=== PATIENT | female | born 1990 | race African-American/Black ===

== ENCOUNTER 2020-05-29 08:21 | Outpatient (REF) | payer OTHER, SELFPAY ==
[2020-05-29 09:33] LABS: Alanine Aminotransferase 9 U/L (0-31); Alkaline Phosphatase 56 U/L (39-117); Anion Gap 16 (12-20); Aspartate Amino Transferase 14 U/L (5-31); Bilirubin Total 0.3 mg/dL (0.0-1.0); Blood Urea Nitrogen 19 mg/dL (9-16); Calcium 8.8 mg/dL (8.4-10.2); Carbon Dioxide 20 mmol/L (22-29); Chloride 109 mmol/L (96-108); Cholesterol 188 mg/dL; Estimated Glomerular Filt Rate > 60; Glucose Fasting 91 mg/dL (60-99); HDL Cholesterol 47 mg/dL; Potassium 4.4 mmol/l (3.3-5.1); Sodium 141 mmol/L (135-145)
[2020-05-29 09:36] LABS: LDL Cholesterol Calculated 127 mg/dl; Triglycerides 71 mg/dL
[2020-06-02 12:07] LABS: Vitamin D 25-OH, D2 <4 ng/mL; Vitamin D 25-OH, D3 21 ng/mL; Vitamin D 25-OH, Total 21 ng/mL (30-100)
== END 2020-05-29 08:22 | disposition home or self-care (01) ==
LOC: HO.LAB 08:21
PROVIDERS: PCP Internal Medicine; Visit Provider Internal Medicine
DX: E55.9 Vitamin D deficiency, unspecified (principal); E78.5 Hyperlipidemia, unspecified; E66.9 Obesity, unspecified
CPT/HCPCS: 36415; 80053; 80061; 82306

== ENCOUNTER 2021-01-05 16:45 | Outpatient (REF) | payer OTHER, SELFPAY ==
[2021-01-05 17:50] LABS: MANUAL DIFF FLAG NO
[2021-01-05 17:58] LABS: Basophils Absolute Auto 0.1 X10*3/uL (0.0-0.2); Basophils Percent Auto 0.5 % (0-2); Eosinophils Absolute Auto 0.2 X10*3/uL (0.0-0.4); Eosinophils Percent Auto 1.7 % (0-4); Hemoglobin 12.8 g/dl (12.0-16.0); Imm Gran Abs Auto 0.03 X10*3/uL (0.00-0.03); Imm Gran Pct Auto 0.3 % (0.0-0.4); Lymphocytes Absolute Auto 2.6 X10*3/uL (1.2-4.9); Lymphocytes Percent Auto 26.6 % (20-40); Mean Corpuscular HGB Conc 32.8 g/dl (31.0-35.0); Mean Corpuscular Hemoglobin 29.2 pg (27.0-33.0); Mean Corpuscular Volume 88.8 fL (80-98); Mean Platelet Volume 10.4 fL (9.4-12.3); Monocytes Absolute Auto 0.9 X10*3/uL (0.1-1.2); Neutrophils Percent Auto 61.9 % (45-73); Platelet Count 305 X10*3/uL (160-400); Red Blood Count 4.39 X10*6/uL (4.20-5.50); Red Cell Distribution Width 12.3 % (11.0-16.0); White Blood Count 9.7 X10*3/uL (4.8-10.8)
[2021-01-05 18:16] LABS: Alanine Aminotransferase 15 U/L (0-31); Albumin Level 4.4 g/dL (3.5-5.0); Alkaline Phosphatase 61 U/L (39-117); Anion Gap 12 (12-20); Aspartate Amino Transferase 18 U/L (5-31); Bilirubin Total 0.4 mg/dL (0.0-1.0); Blood Urea Nitrogen 18 mg/dL (9-16); Calcium 9.8 mg/dL (8.4-10.2); Carbon Dioxide 27 mmol/L (22-29); Chloride 104 mmol/L (96-108); Estimated Glomerular Filt Rate > 60; Glucose Random 85 mg/dL (60-115); Potassium 4.4 mmol/L (3.3-5.1); Sodium 139 mmol/L (135-145); Total Protein 7.4 g/dL (6.5-8.0)
== END 2021-01-05 16:46 | disposition home or self-care (01) ==
LOC: HO.LAB 16:45
PROVIDERS: PCP Internal Medicine; Visit Provider Nurse Practitioner Family
DX: R10.9 Unspecified abdominal pain (principal)
CPT/HCPCS: 36415; 80053; 85025

== ENCOUNTER 2021-10-31 10:46 | Outpatient (REF) | payer OTHER, SELFPAY ==
[2021-10-31 11:16] LABS: MANUAL DIFF FLAG NO
[2021-10-31 11:41] LABS: Basophils Percent Auto 0.4 % (0-2); Eosinophils Absolute Auto 0.3 X10*3/uL (0.0-0.4); Eosinophils Percent Auto 3.5 % (0-4); Hematocrit 40.2 % (37.0-47.0); Hemoglobin 13.1 g/dl (12.0-16.0); Imm Gran Abs Auto 0.02 X10*3/uL (0.00-0.03); Imm Gran Pct Auto 0.3 % (0.0-0.4); Mean Corpuscular HGB Conc 32.6 g/dl (31.0-35.0); Mean Corpuscular Volume 88.9 fL (80.0-98.0); Monocytes Absolute Auto 0.6 X10*3/uL (0.1-1.2); Monocytes Percent Auto 7.6 % (2-11); Neutrophils Absolute Auto 4.5 x10*3/uL (2.0-8.3); Neutrophils Percent Auto 61.2 % (45-73); Platelet Count 302 X10*3/uL (160-400); Red Blood Count 4.52 X10*6/uL (4.20-5.50); Red Cell Distribution Width 12.8 % (11.0-16.0); White Blood Count 7.4 X10*3/uL (4.8-10.8)
[2021-10-31 12:22] LABS: Alanine Aminotransferase 19 U/L (0-31); Albumin Level 4.2 g/dL (3.5-5.0); Alkaline Phosphatase 86 U/L (39-117); Anion Gap 11 (12-20); Aspartate Amino Transferase 22 U/L (5-31); Bilirubin Total 0.4 mg/dL (0.0-1.0); Blood Urea Nitrogen 15 mg/dL (9-16); Calcium 8.9 mg/dL (8.4-10.2); Carbon Dioxide 26 mmol/L (22-29); Chloride 105 mmol/L (96-108); Estimated Glomerular Filt Rate > 60; Glucose Fasting 82 mg/dL (60-99); Potassium 4.3 mmol/L (3.3-5.1); Sodium 138 mmol/L (135-145); Total Protein 7.5 g/dL (6.5-8.0)
[2021-10-31 12:36] LABS: Folate 14.2 ng/mL (> or = 4.0); Vitamin B12 525 pg/mL (200-900)
[2021-10-31 12:46] LABS: Vitamin D 25-OH Total 22.4 ng/mL (>30)
== END 2021-10-31 10:47 | disposition home or self-care (01) ==
LOC: HO.LAB 10:46
PROVIDERS: Nurse Practitioner Family; PCP Internal Medicine; Visit Provider Nurse Practitioner Family
DX: Z00.00 Encounter for general adult medical examination without abnormal findings (principal); R00.2 Palpitations; I10 Essential (primary) hypertension; E78.00 Pure hypercholesterolemia, unspecified; E66.9 Obesity, unspecified
CPT/HCPCS: 36415; 80048; 80053; 82306; 82607; 82746; 84443; 85025

== ENCOUNTER 2023-06-30 09:04 | Outpatient (AMB) | payer OTHER, SELFPAY ==
--- NOTE | 2023-06-30 09:10 | A.OFFPC_ITS ---
Vital Signs 06/30/23 09:11 Height 5 ft 3 in Weight 203 lb BMI 36.0 BP 108/70 Blood Pressure Location Lt brachial Position Sitting Intake Visit Reasons: Annual Exam Intake Note: Patient here for a physical exam Diving Board Assembler Required: No Accompanied by: Self / Same As Patient Allergies bacitracin [BACITRACIN] Allergy (Unknown, Verified 06/30/23 09:18) HIVES Medication List - Last Reconciled 06/30/23 by Maureen Matthews MD No Known Home Meds Tobacco use date assessed: 06/30/23 Dental Screening Dental Screen Date: 06/30/23 Did you have a dental visit in the last 12 months?: Yes Did you have a dental problem in the last 6 months where you did not have access to dental care?: No Was dental information given to patient?: Patient has dentist HPI HPI Comments History of Present Illness Details This is a 33-year-old female that comes for her physical exam. Last Pap smear was 2 weeks ago and was normal as per patient and this was at [facility]. No chest pain or shortness of breath. Has lost 70 lb since bariatric surgery. No fever or cough. [facility] Medical History (Updated 06/30/23 @ 09:28 by Maureen Matthews MD) Morbid obesity with BMI of 40.0-44.9, adult Hypovitaminosis D Pure hypercholesterolemia Obesity Surgical History History of bariatric surgery History of cholecystectomy History of tonsillectomy and adenoidectomy Family History Father Asthma Mother Diabetes Maternal Grandmother Diabetes Maternal Grandfather No problems noted. Paternal Grandmother No problems noted. Paternal Grandfather Stroke Social History Housing: House Alcohol intake: former Patient Tobacco Use Status: Never used Tobacco e-Cigarette/Vaping Use: Never Used Second Hand Smoke Exposure: No service: No Current occupational status: employed Current occupational exposures/hazards: No Cognitive needs: No Hearing needs: No Vision needs: Yes (glasses) Questionnaire PHQ-9 Over the last 2 weeks, how often have you been bothered by any of the following problems? 1. Little interest or pleasure in doing things: not at all 2. Feeling down, depressed, or hopeless: not at all 3. Trouble falling or staying asleep, or sleeping too much: not at all 4. Feeling tired or having little energy: not at all 5. Poor appetite or overeating: not at all 6. Feeling bad about yourself - or that you are a failure or have let yourself or your family down: not at all 7. Trouble concentrating on things, such as reading the newspaper or watching television: not at all 8. Moving or speaking so slowly that other people could have noticed. Or the opposite - being so fidgety or restless that you have been moving around a lot more than usual: not at all 9. Thoughts that you would be better off or of hurting yourself in some way: not at all Total score: 0 Depression Screening Interpretation: Negative Depression Screening Done: Yes 26724 - PHQ-9 Billing: Yes Source: Developed by Drs. Jonatan Fuchs, Serenity Mueller, Eyad Stover and colleagues, with an educational nilton from [employer]. Thrive Questionnaire Date Thrive assessed: 06/30/23 I am a: Patient What is your living situation today?: I have a steady place to live Within the past 12 months, did the food you bought not last and you didn't have the money to get more?: Never true Within the past 12 months, did you worry whether your food would run out before you got money to buy more?: Never true Do you have trouble paying for medicines?: No Do you have trouble getting transportation to medical appointments?: No Do you have trouble paying your heating and electricity bill?: No Do you have trouble taking care of your child, family member or friend?: No Do you have trouble with day-to-day activities such as bathing, preparing meals, shopping, managing finances, etc.?: No Are you currently unemployed and looking for a job?: No Are you interested in more education?: No Please select the resources that you would like help with: None Currently or been in a relationship where the following occur: no concerns reported THRIVE Score: 0 AUDIT C Alcohol Use Questionnaire (AUDIT-C) 1. How often do you have a drink containing alcohol?: Never Total Score: 0 BELA-7 AMB Questionnaire BELA-7 Date BELA - 7 assessed: 06/30/23 Feeling nervous, anxious, or on edge: 0 = Not at all Not being able to stop or control worryin = Not at all Worrying too much about different things: 0 = Not at all Trouble relaxin = Not at all Being so restless that it is hard to sit still: 0 = Not at all Becoming easily annoyed or irritable: 0 = Not at all Feeling afraid as if something awful might happen: 0 = Not at all Total BELA-7 score (0-4 normal; 5-9 mild; 10-14 moderate; 15-21 severe): 0 Source: Developed by Drs. Jonatan Fuchs, Serenity Mueller, Eyad Stover and colleagues, with an educational nilton from [employer]. BELA-7 Assessment Billing BELA-7 Assessment Tool: BELA-7 Assessment 38197 Review of Systems Const All systems reviewed & are unremarkable except as noted in HPI and below Eyes Reports no additional complaints, Denies change in vision and Denies other visual disturbances Card Denies chest pain at rest, Denies chest pain with activity, Denies edema, Denies irregular heart rhythm, Denies claudication, Denies dyspnea, Denies dyspnea on exertion, Denies orthopnea, Denies paroxysmal nocturnal dyspnea and Denies slow heart rate Resp Denies cough, Denies dyspnea and Denies dyspnea on exertion GI Denies abdominal pain, Denies change in bowel habits, Denies excessive flatus, Denies nausea and Denies vomiting Denies urinary incontinence, Denies urinary hesitancy and Denies urinary urgency Musc Denies abnormal gait, Denies atrophy, Denies deformity and Denies limited range of motion Skin/Breast Denies bleeding lesions, Denies changing lesions and Denies rash Neuro Denies abnormal gait, Denies behavioral changes, Denies confusion and Denies lack of coordination Psych Denies behavioral changes and Denies confusion Physical exam (Primary Care) Vital Signs: Last Vital Signs BP 108/70 06/30/23 09:11 BMI result Body Mass Index 36.0 Tobacco/Smoking Status: Tobacco use Status Tobacco use date assessed 06/30/23 06/30/23 09:17 Patient Tobacco Use Status Never used Tobacco 06/30/23 09:17 e-Cigarette/Vaping Use Never Used 06/30/23 09:17 PHQ-9: PHQ-9 Score PHQ-9: Total score 0 06/30/23 09:17 Depression Screening Interpretation: Negative Thrive Assessment: Date of Thrive Assessment Date Thrive assessed 06/30/23 06/30/23 09:17 Currently or been in a relationship where the following occur: no concerns reported Const General: No confusion Orientation/consciousness: patient oriented x3 and No confusion HENMT Head: Yes normal to inspection, Yes normocephalic and Yes atraumatic Ears: external ears normal Eyes General: appearance normal, both eyes and all related structures Eyelids: Yes eyelids normal Conjunctivae: conjunctivae normal Neck Neck: Yes normal visual inspection and Yes supple Resp Effort & Inspection: normal respiratory effort Auscultation: clear to auscultation bilaterally Cardio Jugular venous distension: no JVD Rate: regular rate Rhythm: regular rhythm Heart sounds: S1 normal heart sound present and S2 normal heart sound present GI Inspection: Yes normal to inspection Palpation (GI): Soft to palpation and nontender Auscultation: normal bowel sounds Skin General skin exam: no rashes or lesions noted Neuro General: patient oriented x3, no focal motor deficits and No confusion Extrem General: Yes full ROM Psych Appearance: grossly normal Assessment and Plan Assessment & Plan (1) Physical exam: Code(s): Z00.00 - Encounter for general adult medical examination without abnormal findings Plan: Repeat in a year. Orders: Orders Vitamin D 25-OH Total Today E55.9 - Vitamin D deficiency, unspecified Comprehensive Ulysses. Panel Fast Today Z00.00 - Encounter for general adult medical examination without abnormal findings Vitamin B12 and Folate Today E53.8 - Deficiency of other specified B group vitamins Lipid Panel Today Z00.00 - Encounter for general adult medical examination without abnormal findings Complete Blood Count Auto Diff Today E66.9 - Obesity, unspecified Coding Level of Care Code Est Pt Prev Care 18-39y(21895) Diagnoses Physical exam Z00.00 Additional Codes BELA-7 Assessment Billing - BELA-7 Assessment Tool: BELA-7 Assessment 75822 ([id number]) Time Spent (min) 31
[2023-06-30 09:11] VITALS: BP 108/70; BMI 36.0
== END 2023-06-30 09:26 | disposition home or self-care (01) ==
PROVIDERS: Visit Provider Internal Medicine
DX: Z00.00 Encounter for general adult medical examination without abnormal findings (principal)
CPT/HCPCS: 99395

== ENCOUNTER → 2024-07-05 08:25 | Outpatient (BNVA) | payer OTHER, MEDICAID, SELFPAY | PROVIDERS: PCP Internal Medicine; Visit Provider Internal Medicine ==

== ENCOUNTER 2024-07-19 14:46 | Outpatient (AMB) | payer OTHER, SELFPAY ==
--- NOTE | 2024-07-19 14:53 | MHC.PC.OV ---
Vital Signs 07/19/24 14:54 Height 5 ft 3 in Weight 216 lb 6 oz BMI 38.3 BP 130/70 Blood Pressure Location Lt brachial Position Sitting Pulse 53 Pulse Source Pulse Oximeter Temp 97.1 F Temp Source Temporal Artery Scan Pulse Oximetry (%) 100 Oxygen Delivery Method Room Air Intake Visit Reasons: PE - needed to work Intake Note: Patient is here today for a physical. Frame Operator Required: No Anatomy And Physiology Instructor: Not Required per policy Accompanied by: Self / Same As Patient Allergies bacitracin [BACITRACIN] Allergy (Unknown, Verified 07/19/24 15:12) HIVES Medication List - Last Reconciled 07/19/24 by Mariana Boudreaux PA-C No Known Home Meds Tobacco use date assessed: 07/19/24 Dental Screening Dental Screen Date: 07/19/24 Did you have a dental visit in the last 12 months?: Yes Did you have a dental problem in the last 6 months where you did not have access to dental care?: No Was dental information given to patient?: Patient has dentist HPI PE - needed to work HPI Details 34-year-old female with past medical history of hypercholesterolemia and obesity last seen 06/2023 coming in for annual exam. Presenting with a routine physical examination. She has not had any changes in her health profile, including allergies, smoking, or daily medication use, within the past year. She reports managing eczema symptoms with products suitable for her child?s eczema, particularly using Aquaphor, and no progression of symptoms is indicated. Pap smear: 2022 with [facility] for gynecology [facility] Medical History Morbid obesity with BMI of 40.0-44.9, adult Hypovitaminosis D Pure hypercholesterolemia Obesity Surgical History History of bariatric surgery History of cholecystectomy History of tonsillectomy and adenoidectomy Family History Father Asthma Mother Diabetes Maternal Grandmother Diabetes Maternal Grandfather No problems noted. Paternal Grandmother No problems noted. Paternal Grandfather Stroke Social History Housing: House Alcohol intake: current Alcohol intake frequency: holidays/special occasions only Patient Tobacco Use Status: Never used Tobacco e-Cigarette/Vaping Use: Never Used Second Hand Smoke Exposure: No service: No Current occupational status: employed Current occupational exposures/hazards: No Cognitive needs: No Hearing needs: No Vision needs: Yes (glasses) Female Reproductive History Menstrual control method: none Total pregnancies: 2 Full term: 2 History of abnormal pap smear: No Questionnaire PHQ-9 Over the last 2 weeks, how often have you been bothered by any of the following problems? 1. Little interest or pleasure in doing things: not at all 2. Feeling down, depressed, or hopeless: not at all 3. Trouble falling or staying asleep, or sleeping too much: not at all 4. Feeling tired or having little energy: not at all 5. Poor appetite or overeating: not at all 6. Feeling bad about yourself - or that you are a failure or have let yourself or your family down: not at all 7. Trouble concentrating on things, such as reading the newspaper or watching television: not at all 8. Moving or speaking so slowly that other people could have noticed. Or the opposite - being so fidgety or restless that you have been moving around a lot more than usual: not at all 9. Thoughts that you would be better off or of hurting yourself in some way: not at all Total score: 0 Depression Screening Interpretation: Negative Depression Screening Done: Yes Source: Developed by Drs. Jonatan Fuchs, Serenity Mueller, Eyad Stover and colleagues, with an educational nilton from [employer]. Thrive Questionnaire Date Thrive assessed: 07/05/24 I am a: Patient What is your living situation today?: I have a steady place to live Within the past 12 months, did the food you bought not last and you didn't have the money to get more?: Never true Within the past 12 months, did you worry whether your food would run out before you got money to buy more?: Never true Do you have trouble paying for medicines?: No Do you have trouble getting transportation to medical appointments?: No Do you have trouble paying your heating and electricity bill?: No Do you have trouble taking care of your child, family member or friend?: No Do you have trouble with day-to-day activities such as bathing, preparing meals, shopping, managing finances, etc.?: No Are you currently unemployed and looking for a job?: No Are you interested in more education?: No Please select the resources that you would like help with: None Currently or been in a relationship where the following occur: No concerns reported THRIVE Score: 0 AUDIT C Alcohol Use Questionnaire (AUDIT-C) 1. How often do you have a drink containing alcohol?: Never Total Score: 0 BELA-7 AMB Questionnaire BELA-7 Date BELA - 7 assessed: 07/19/24 Feeling nervous, anxious, or on edge: 0 = Not at all Not being able to stop or control worryin = Not at all Worrying too much about different things: 0 = Not at all Trouble relaxin = Not at all Being so restless that it is hard to sit still: 0 = Not at all Becoming easily annoyed or irritable: 0 = Not at all Feeling afraid as if something awful might happen: 0 = Not at all Total BELA-7 score (0-4 normal; 5-9 mild; 10-14 moderate; 15-21 severe): 0 Source: Developed by Drs. Jonatan Fuchs, Serenity Mueller, Eyad Stover and colleagues, with an educational nilton from [employer]. BELA-7 Assessment Billing BELA-7 Assessment Tool: BELA-7 Assessment 91049 Review of Systems Const Denies body aches, Denies chills, Denies fever(s), Denies headache(s) and Denies poor appetite Eyes Reports no additional complaints ENT Denies dysphagia, Denies dizziness, Denies headache(s) and Denies odynophagia Card Denies chest pain, Denies syncope, Denies edema, Denies irregular heart rhythm, Denies lightheadedness and Denies dyspnea Resp Denies cough and Denies dyspnea GI Denies abdominal pain, Denies constipation, Denies dysphagia, Denies diarrhea, Denies nausea, Denies odynophagia and Denies vomiting Reports no additional complaints Musc Reports no additional complaints and Denies abnormal gait Skin/Breast Reports system reviewed and no additional complaints, except as documented Neuro Denies abnormal gait, Denies dizziness, Denies syncope and Denies headache(s) Psych Reports no additional complaints Physical exam (Primary Care) Vital Signs: Last Vital Signs Temp 97.1 F 07/19/24 14:54 Pulse 53 07/19/24 14:54 BP 130/70 07/19/24 14:54 Pulse Ox 100 07/19/24 14:54 Oxygen Delivery Method Room Air 07/19/24 14:54 BMI result Body Mass Index 38.3 Tobacco/Smoking Status: Tobacco use Status Tobacco use date assessed 07/19/24 07/19/24 14:59 Patient Tobacco Use Status Never used Tobacco 07/19/24 14:58 e-Cigarette/Vaping Use Never Used 07/19/24 14:58 PHQ-9: PHQ-9 Score PHQ-9: Total score 0 07/19/24 15:09 Depression Screening Interpretation: Negative Thrive Assessment: Date of Thrive Assessment Date Thrive assessed 07/05/24 07/19/24 14:54 Currently or been in a relationship where the following occur: No concerns reported Const General: cooperative, healthy appearing, comfortable and no acute distress Orientation/consciousness: patient oriented x3 HENMT Head: Yes normocephalic Ears: hearing grossly normal bilaterally, external ears normal, TM's normal bilaterally and EAC's normal General nose exam: Normal external nose present Face and sinus: Yes normal facial exam and Yes sinuses nontender Mouth: Normal oral and palatal mucosa present and tongue normal Throat: Yes posterior oropharynx normal Eyes General: appearance normal, both eyes and all related structures Conjunctivae: conjunctivae normal Pupils: Equal, round and reactive pupils present EOM: EOMs intact bilaterally and No Nystagmus present Neck Neck: Yes normal visual inspection, Yes full ROM and Yes no lymphadenopathy Chest Chest palpation & inspection: normal inspection of the chest Resp Effort & Inspection: normal respiratory effort Auscultation: clear to auscultation bilaterally, no crackles, no rales, no rhonchi, no wheezes and breath sounds present Cardio Rate: regular rate Rhythm: regular rhythm Peripheral pulses: radial pulses present and dorsalis pedis present GI Inspection: Yes normal to inspection and No Abdominal wall edema Palpation (GI): Soft to palpation, not firm and nontender Auscultation: normal bowel sounds Rectal Exam - Female: deferred General: Yes no CVA tenderness Back/Spine/Pelvis Back: no CVA tenderness Skin General skin exam: no rashes or lesions noted Neuro General: patient oriented x3 Cranial nerves: Yes Equal, round and reactive pupils present, Yes Midline tongue present, Yes Ability to bilaterally elevate shoulders present and No Nystagmus present Gait exam (Neuro): Normal gait present Extrem General: Yes normal to inspection, Yes full ROM, No no pedal edema and No edema Psych Speech and movement: Normal speech and movement present Affect: normal affect Insight: Good insight present (Psych) Judgement: Good judgement present (Psych) Coding Level of Care Code Est Pt Prev Care 18-39y(64162) Diagnoses Low vitamin D level R79.89 Obesity (BMI 35.0-39.9 without comorbidity) E66.9 Pure hypercholesterolemia E78.00 Physical exam Z00.00 Eczema L30.9 Additional Codes BELA-7 Assessment Billing - BELA-7 Assessment Tool: BELA-7 Assessment [id number] ([id number]) Assessment & Plan Assessment & Plan (1) Low vitamin D level: Code(s): R79.89 - Other specified abnormal findings of blood chemistry Category: Medical Plan: Ordered for repeat blood work not currently on supplementation. (2) Obesity (BMI 35.0-39.9 without comorbidity): Code(s): E66.9 - Obesity, unspecified Category: Medical Plan: Healthy diet and regular exercise is encouraged. (3) Pure hypercholesterolemia: Code(s): E78.00 - Pure hypercholesterolemia, unspecified Category: Medical Plan: Avoid foods that are high in cholesterol such as red meat, fried foods, eggs and baked goods. Triglyceride goal of less than 150 and LDL goal of less than 130. (4) Physical exam: Code(s): Z00.00 - Encounter for general adult medical examination without abnormal findings Category: Medical Plan: Patient is up-to-date on all recommended routine vaccinations for her age. I did order for updated blood work to be completed by the patient. The patient?s routine physical examination indicated no acute issues requiring immediate intervention. Instructions were provided to complete overdue blood work, including CBC and metabolic panel, which are significant for ongoing health maintenance. Patient is advised to maintain routine health checks and is encouraged to schedule regular Pap smears and dental visits as previously established. Follow-up is anticipated in one year, barring new symptoms or occurrences. (5) Eczema: Code(s): L30.9 - Dermatitis, unspecified Category: Medical Plan: The eczema is being managed with [id number] creams and ointments, which seems satisfactory. Plan This note was constructed using voice recognition software. While every effort has been made to ensure accuracy and smoke room operator, still areas may have been included sometimes these areas may affect the content or meeting of the given symptoms. Total time spent caring for the patient today was 30 minutes. This includes time spent before the visit reviewing the chart, time spent during the visit, and time spent after the visit and documentation. Patient was informed and verbally consented to the use of an ambient scribe for clinic note documentation during this visit. Orders: Orders Comprehensive Met. Panel Today Z00.00 - Encounter for general adult medical examination without abnormal findings TSH reflex Free T4 Today Z00.00 - Encounter for general adult medical examination without abnormal findings Vitamin B12 and Folate Today Z00.00 - Encounter for general adult medical examination without abnormal findings Vitamin D 25-OH Total Today Z00.00 - Encounter for general adult medical examination without abnormal findings Complete Blood Count Auto Diff Today Z00.00 - Encounter for general adult medical examination without abnormal findings Lipid Panel Today E78.00 - Pure hypercholesterolemia, unspecified Free T4 (Free Thyroxine) Today Z00.00 - Encounter for general adult medical examination without abnormal findings
[2024-07-19 14:54] VITALS: BP 130/70; PULSE 53; TEMP 36.2; O2SAT 100; BMI 38.3
== END 2024-07-19 15:31 | disposition home or self-care (01) ==
LOC: HO.HMCH 14:47
PROVIDERS: PCP Internal Medicine
DX: Z00.00 Encounter for general adult medical examination without abnormal findings (principal); R79.89 Other specified abnormal findings of blood chemistry; E66.9 Obesity, unspecified; Z68.38 Body mass index [BMI] 38.0-38.9, adult; E78.00 Pure hypercholesterolemia, unspecified; L30.9 Dermatitis, unspecified

== ENCOUNTER → 2024-07-19 14:46 | Outpatient (BNVA) | payer OTHER, SELFPAY | PROVIDERS: PCP Internal Medicine | DX: Z00.00 Encounter for general adult medical examination without abnormal findings (principal); R79.89 Other specified abnormal findings of blood chemistry; E66.9 Obesity, unspecified; E78.00 Pure hypercholesterolemia, unspecified; L30.9 Dermatitis, unspecified | CPT/HCPCS: 96127; 99395 ==

== ENCOUNTER 2024-11-15 13:14 | Outpatient (AMB) | payer OTHER, SELFPAY ==
--- NOTE | 2024-11-15 13:22 | A.OFFPC_ITS ---
Vital Signs 11/15/24 13:23 Height 5 ft 3 in Weight 218 lb BMI 38.6 BP 118/60 Blood Pressure Location Lt brachial Position Sitting Oxygen Delivery Method Room Air Intake Visit Reasons: Eczema Infected Shuttle Car Operator Required: No Accompanied by: Self / Same As Patient Allergies bacitracin (BACITRACIN) Allergy (Unknown, Verified 11/15/24 13:42) HIVES Medication List - Last Reconciled 11/15/24 by Mariana Boudreaux PA-C No Known Home Meds Tobacco use date assessed: 11/15/24 Dental Screening Dental Screen Date: 11/15/24 Did you have a dental visit in the last 12 months?: Yes Did you have a dental problem in the last 6 months where you did not have access to dental care?: No Was dental information given to patient?: Patient has dentist HPI Eczema Infected HPI Details 34-year-old female with past medical his tory of hypercholesterolemia and obesity last seen 07/2024 coming in for acute problem. Presenting with exacerbation of eczema. The eczema has been out of control, characterized by oozing and irritation. The condition started worsening approximately two weeks ago, with no prior episodes of this severity. The patient has attempted treatment with [id number] creams, including cortisone, with limited success. The patient reports a history of dyshidrotic ec zema, presenting as small vesicles that break and ooze. There is a suspicion of contact dermatitis, possibly from an unknown irritant, as the rash resembles a contact rash. The patient denies any new exposures to plants, insect bites, or new foods. [facility] Medical History Morbid obesity with BMI of 40.0-44.9, adult Hypovitaminosis D Pure hypercholesterolemia Obesity Surgical History History of bariatric surgery History of cholecystectomy History of tonsillectomy and adenoidectomy Family History Father Asthma Mother Diabetes Maternal Grandmother Diabetes Maternal Grandfather No problems noted. Paternal Grandmother No problems noted. Paternal Grandfather Stroke Social History Housing: House Alcohol intake: current Alcohol intake frequency: holidays/special occasions only Patient Tobacco Use Status: Never used Tobacco e-Cigarette/Vaping Use: Never Used Second Hand Smoke Exposure: No service: No Current occupational status: employed Current occupational exposures/hazards: No Cognitive needs: No Hearing needs: No Vision needs: Yes (glasses) Questionnaire Thrive Questionnaire Date Thrive assessed: 11/15/24 I am a: Patient What is your living situation today?: I have a steady place to live Within the past 12 months, did the food you bought not last and you didn't have the money to get more?: Never true Within the past 12 months, did you worry whether your food would run out before you got money to buy more?: Never true Do you have trouble paying for medicines?: No Do you have trouble getting transportation to medical appointments?: No Do you have trouble paying your heating and electricity bill?: No Do you have trouble taking care of your child, family member or friend?: No Do you have trouble with day-to-day activities such as bathing, preparing meals, shopping, managing finances, etc.?: No Are you currently unemployed and looking for a job?: No Are you interested in more education?: No Please select the resources that you would like help with: None Currently or been in a relationship where the following occur: No concerns reported THRIVE Score: 0 BELA-7 AMB Questionnaire BELA-7 Date BELA - 7 assessed: 11/15/24 Source: Developed by Drs. Jonatan Fuchs, Serenity Mueller, Eyad Stover and colleagues, with an educational nilton from [employer]. Review of Systems Const Denies body aches, Denies chills, Denies fever(s), Denies headache(s) and Denies poor appetite Eyes Reports no additional complaints ENT Denies dysphagia, Denies dizziness, Denies headache(s) and Denies odynophagia Card Denies chest pain, Denies syncope, Denies edema, Denies irregular heart rhythm, Denies lightheadedness and Denies dyspnea Resp Denies cough and Denies dyspnea GI Denies abdominal pain, Denies constipation, Denies dysphagia, Denies diarrhea, Denies nausea, Denies odynophagia and Denies vomiting Reports no additional complaints Musc Reports no additional complaints and Denies abnormal gait Skin/Breast Reports system reviewed and no additional complaints, except as documented Neuro Denies abnormal gait, Denies dizziness, Denies syncope and Denies headache(s) Psych Reports no additional complaints Physical exam (Primary Care) Vital Signs: Last Vital Signs BP 118/60 11/15/24 13:23 Oxygen Delivery Method Room Air 11/15/24 13:23 BMI result Body Mass Index 38.6 Tobacco/Smoking Status: Tobacco use Status Tobacco use date assessed 11/15/24 11/15/24 13:26 Patient Tobacco Use Status Never used Tobacco 11/15/24 13:26 e-Cigarette/Vaping Use Never Used 11/15/24 13:26 Thrive Assessment: Date of Thrive Assessment Date Thrive assessed 11/15/24 11/15/24 13:26 Currently or been in a relationship where the following occur: No concerns reported Const General: cooperative, healthy appearing, comfortable and no acute distress Orientation/consciousness: patient oriented x3 HENMT Head: Yes normocephalic Ears: hearing grossly normal bilaterally General nose exam: Normal external nose present Eyes General: appearance normal, both eyes and all related structures Conjunctivae: conjunctivae normal Neck Neck: Yes full ROM and Yes no lymphadenopathy Resp Effort & Inspection: normal respiratory effort Auscultation: clear to auscultation bilaterally, no crackles, no rales, no rhonchi and no wheezes Cardio Rate: regular rate Rhythm: regular rhythm Skin Other: Macular papular rash of the right hand with areas of open skin General skin exam: no rashes or lesions noted Neuro General: patient oriented x3 Gait exam (Neuro): Normal gait present Extrem General: Yes normal to inspection, Yes full ROM and No edema Psych Affect: normal affect Attitude: cooperative Insight: Good insight present (Psych) Judgement: Good judgement present (Psych) Coding Level of Care Code Est Pt Level 3 (72352) Diagnoses Eczema L30.9 Assessment & Plan Assessment & Plan (1) Eczema: Code(s): L30.9 - Dermatitis, unspecified Category: Medical Plan: The patient will be prescribed a medium potency topical steroid to manage the eczema flare-up. The steroid should be applied twice daily for no longer than 14 days, with an expectation of improvement within 4 to 5 days. If the condition does not improve, the patient is advised to contact the clinic for a possible telehealth follow-up. The patient is instructed to avoid scratching to prevent further skin damage and potential infection. Benadryl may be used at night to alleviate itching. The patient should monitor for signs of infection, such as increased redness or warmth, and report these symptoms if they occur. Plan This note was constructed using voice recognition software. While every effort has been made to ensure accuracy and corporate responsibility officer, still areas may have been included sometimes these areas may affect the content or meeting of the given symptoms. Total time spent caring for the patient today was 20 minutes. This includes time spent before the visit reviewing the chart, time spent during the visit, and time spent after the visit and documentation. Patient was informed and verbally consented to the use of an ambient scribe for clinic note documentation during this visit. Medications: New triamcinolone acetonide 0.1% 1 appl topical BID 30 grams 0RF
[2024-11-15 13:23] VITALS: BP 118/60; BMI 38.6
--- OUTSIDE RECORDS SUMMARY | 2024-11-15 14:19 | XMS_ITS | Encounter Summary ---
Author Organization [facility] Address [address] [place] [address] Phone Care Team Providers Care Raschel Knitting Machine Operator Name Role Phone Natali Yu MD Primary Care Provider Unavailabl e Encounter Details Date Type Department Care Team (Late st Contact Info) Description 01/29/2017 Conversion Encounter [facility] - [address] [address] Social History Tobacco Use Types Packs/Day Years Used Date Smoking Tobacco: Never Comments:Never smoker Comments Unknown Sex and Gender Information Value Date Recorded Sex Assigned at Not on file Legal Sex Female 4:44 PM EDT Gender Identity Not on file Sexual Orientation Not on file documented as of this encounter Plan of Treatment Not on file documented as of this encounter Visit Diagnoses Not on filedocumented in this encounter Care Teams Raschel Knitting Machine Operator Relationship Specialty Start Date End Date Natali Yu MD PCP - General 12/13/16 documented as of this encounter
== END 2024-11-15 14:01 | disposition home or self-care (01) ==
LOC: HO.HMCH 13:15
PROVIDERS: PCP Internal Medicine
DX: L30.9 Dermatitis, unspecified (principal)

== ENCOUNTER → 2024-11-15 13:14 | Outpatient (BNVA) | payer OTHER, SELFPAY | PROVIDERS: PCP Internal Medicine | DX: L30.9 Dermatitis, unspecified (principal) | CPT/HCPCS: 99212 ==